=== PATIENT | female | born 1970 | race Caucasian/White ===

== ENCOUNTER 2018-05-30 12:59 | Emergency (ER) | payer BC ==
[~2018-05-30] VITALS: Ht 157.5 cm; Wt 80.0 kg
[2018-05-30] MEDS ORDERED: MORPHINE SULFATE 4 MG/ML CPJ (NOT FOR IM USE) IV STA ×2 (13:37→17:53)
[2018-05-30] MEDS ORDERED: SODIUM CHLORIDE 0.9% 1,000 ML IV ONE ×2 (13:37→17:53)
[2018-05-30] MEDS ORDERED: ONDANSETRON HCL 4MG/2ML INJ IV STA ×2 (13:37→17:53)
[2018-05-30 14:10] LABS: BASOPHILS % 0.8 % (0.0-2.0); EOSINOPHILS % 1.6 % (0.0-5.0); HEMATOCRIT. 41.1 % (36.0-48.0); HEMOGLOBIN. 14.1 g/dL (12.0-16.0); LYMPHOCYTES % 17.9 % (20.0-50.0); MEAN CORPUSCULAR HEMOGLOBIN 31.7 pg (28.0-32.0); MEAN CORPUSCULAR VOLUME 92.7 fL (81.0-99.0); MEAN PLATELET VOLUME 9.1 fl (7.4-10.4); MONOCYTES % 4.8 % (2.0-8.0); NEUTROPHILS % 74.9 % (40.0-76.0); PLATELET 273 x1000/uL (130-400); RED BLOOD CELL COUNT 4.43 mill/uL (4.2-5.4); RED CELL DISTRIBUTION WIDTH 12.7 % (11.6-14.6)
[2018-05-30 14:13] LABS: PROTHROMBIN TIME 10.1 sec (9.1-11.1)
[2018-05-30 14:14] LABS: CHLORIDE 106 mEq/L (98-107)
[2018-05-30] MEDS ORDERED: KETOROLAC 30MG/ML VIAL IV ONE (15:00)
[2018-05-30] MEDS ORDERED: MORPHINE SULFATE 2 MG/ML CPJ (NOT FOR IM USE) IV ONE ×2 (16:15→18:00)
[2018-05-30 19:15] VITALS: BP 112/71
== END 2018-05-30 19:18 | disposition left against medical advice (07) ==
LOC: ER 12:59
DX: N83.201 Unspecified ovarian cyst, right side (principal)
CPT/HCPCS: 36415; 71045; 74176; 76830; 76856; 80053; 83690; 85025; 85610; 96374; 96375; 96376; 99285; J1885; J2270; J2405; J7030